=== PATIENT | female | born 2005 | race Two or more races ===

== ENCOUNTER 2023-11-18 11:33 | Emergency (ER) | payer OTHER ==
[~2023-11-18] VITALS: Ht 170.2 cm; Wt 57.6 kg
[2023-11-18 11:38] VITALS: BP 122/75; TEMP 98.2
[2023-11-18] MEDS ORDERED: POLY10DR OP (11:57)
[2023-11-18 12:02] VITALS: O2SAT 98
== END 2023-11-18 12:02 | disposition home or self-care (01) ==
LOC: ER 11:50
DX: H10.9 Unspecified conjunctivitis (principal)